=== PATIENT | male | born 1985 ===

== ENCOUNTER 2019-02-04 03:40 | Emergency (ER) | payer OTHER ==
[~2019-02-04] VITALS: Ht 175.3 cm; Wt 77.1 kg
== END 2019-02-04 06:07 | disposition home or self-care (01) ==
LOC: ER 03:40
DX: F10.10 Alcohol abuse, uncomplicated (principal); F19.10 Other psychoactive substance abuse, uncomplicated; I10 Essential (primary) hypertension
CPT/HCPCS: 99283